=== PATIENT | male | born 1935 | race Caucasian/White ===

== ENCOUNTER 2023-03-22 02:08 | Emergency (ER) | payer MEDICARE, SELFPAY ==
[2023-03-22] VITALS (46 sets, daily range): BP systolic 134–162; BP diastolic 57–78; PULSE 73–128; RESP 11–29; TEMP 37.2; O2SAT 95–99; BMI 26.7
--- NOTE | 2023-03-22 02:38 | ED_ITS ---
HPI - General Adult General Chief complaint: Nausea/Vomiting/Diarrhea Stated complaint: RAPID HEART RATE Time Seen by Provider: 03/22/23 02:23 Source: patient Mode of arrival: walk-in Limitations: no limitations History of Present Illness HPI narrative: This 87-year-old male states that he probably has atrial fibrillation presents for evaluation of a rapid heart rate. He is on a beta joshua and lisinopril. The patient's has been sick today and he states that she was calling out for him to help her when he felt his pulse go up. He states it was racing and has since slowed down a little bit. He denied that he was nauseated but after getting to the emergency department had an episode of emesis. He denies any abdominal pain. He denies any dizziness or syncope. He is not short of breath. The patient and his were both in [place] over the holidays visiting family. The patient states that everybody at the family gathering was sick with something. 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 Related Data Allergies Allergy/AdvReac Type Severity Reaction Status Date / Time No Known Drug Allergies Allergy Verified 03/22/23 02:17 Review of Systems ROS Status of ROS 10 or more systems reviewed and unremark able except as noted in history and below Exam Narrative Exam Narrative: Nurses note and vital signs reviewed and patient is not hypoxic.His blood pressure is elevated and pulse is elevated at 128 General: The patient appears well and in no apparent distress. Patient is resting comfortably on cart. Skin: Warm, dry, no pallor noted. There is no rash noted. Head: Normocephalic, atraumatic Eye: Normal conjunctiva, no drainage, EOMI. PERRL Ears, Nose, Mouth, and Throat: oral mucosa is moist. Cardiovascular: Irregular Rate and RhythmS1 and S2, pulses are brisk and equal bilaterally Respiratory: Patient is in no distress, no accessory muscle use, lungs are riley ar to auscultation, no wheezing, rales or rhonchi Back: non-tender, no CVA tenderness bilaterally to percussion. GI: Hyperactive bowel sounds, no tenderness to palpation, no masses appreciated. No rebound, guarding, or rigidity noted. Musculoskeletal: The patient has no evidence of calf tenderness, mild swelling of the left ankle and lower leg Neurological: A&O x4, normal speech Psychiatric: Cooperative Constitutional Vital Signs, click to edit/add: Last Vital Signs Temp 98.9 F 03/22/23 02:52 Pulse 87 03/22/23 04:30 Resp 12 03/22/23 04:30 BP 155/76 H 03/22/23 04:30 Pulse Ox 98 03/22/23 04:30 Course Vital Signs Vital signs: Vital Signs Pulse Rate 128 H 03/22/23 02:12 Respiratory Rate 22 03/22/23 02:12 Blood Pressure 160/77 H 03/22/23 02:12 Pulse Oximetry 99 03/22/23 02:12 Temperature 98.9 F 03/22/23 02:52 Pulse Rate 87 03/22/23 04:30 Respiratory Rate 12 03/22/23 04:30 Blood Pressure 155/76 H 03/22/23 04:30 Pulse Oximetry 98 03/22/23 04:30 Medical Decision Making MDM Narrative Medical decision making narrative: This 87-year-old male presents for evaluation of a rapid heart rate. The patient's has been sick with a stomach bug all day and she called out to him because she needed help and wanted to come to the hospital. He states at that point he felt that his heart was racing. He thinks he has a history of atrial fibrillation but is not sure. He denied any chest pain shortness of breath dizziness or diaphoresis. On arrival he was noted to be tachycardic but then vomited and his pulse rate went down. EKG done upon arrival was a rapid atrial rhythm at 112 bpm with a left anterior hemiblock. An IV was placed and he is medicated her 324 mg aspirin, IV fluids and Zofran. His nausea resolved and he felt better after vomiting. Routine labs are reviewed. He has a normal white count and hemoglobin. He has a normal troponin. He has an elevated BUN/creatinine at 44/1.65. He tested negative for COVID 19 and influenza but tested positive for rhinorrhea/enterovirus. Chest x-ray was negative for acute findings. A repeat EKG was ordered after the IVF and is a regular rhythm at 90 bpm. He has not had any chest pain, his blood pressure has come down to 155/76 after he has relaxed and more and he is tolerating clear liquids. Lab Data Labs: Lab Results 03/22/23 03/22/2303/22/23 Range/Units 02:25 03:00 03:00 WBC 7.4 (4.0-11.0) 10^3/uL RBC 3.44 L (4.70-6.10) 10^6/uL Hgb 11.6 L (14.0-18.0) g/dL Hct 36.2 L (42.0-54.0) % MCV 105.2 H (80.0-94.0) fL MCH 33.7 (25.9-34.0) pg MCHC 32.0 (29.9-35.2) g/dL RDW 12.3 (11.0-15.0) % Plt Count 224 (150-450) 10^3/uL MPV 9.8 (9.5-13.5) fL Neut % (Auto) 77.1 H (43.0-75.0) % Lymph % (Auto) 12.4 L (20.5-60.0) % [place] % (Auto) 6.6 (1.7-12.0) % Eos % (Auto) 3.2 (0.9-7.0) % Baso % (Auto) 0.3 (0.2-2.0) % Neut # (Auto) 5.7 (1.4-6.5) 10^3/uL Lymph # (Auto) 0.9 L (1.2-3.8) 10^3/uL [place] # (Auto) 0.5 (0.3-0.8) 10^3/uL Eos # (Auto) 0.2 (0.0-0.7) 10^3/uL Baso # (Auto) 0.0 (0.0-0.1) 10^3/uL Abs Immat Gran (auto) 0.03 (0.00-0.03) 10^3/uL Imm/Tot Granulo (auto) 0.4 (0.0-0.5) % Sodium 142 (136-145) mmol/L Potassium 3.9 (3.5-5.1) mmol/L Chloride 106 (98-107) mmol/L Carbon Dioxide 22.5 (21.0-32.0) mmol/L Anion Gap 17.4 BUN 44.0 H (7.0-18.0) mg/dL Creatinine 1.65 H (0.70-1.30) mg/dL Est GFR ( Amer) 48 L (>=60) Est GFR (Non-Af Amer) 40 L (>=60) BUN/Creatinine Ratio 26.7 Glucose 129 H (74-106) mg/dL Calcium 9.3 (8.5-10.1) mg/dL Total Bilirubin 0.7 (0.2-1.0) mg/dL AST 40 H (15-37) U/L ALT 41 (16-63) U/L Alkaline Phosphatase 138 H (46-116) U/L Troponin I High Sens 9.4 (4.0-76.1) pg/mL NT-Pro-B Natriuret Pep 223.0 (<=1800.0) pg/mL Total Protein 7.5 (6.4-8.2) g/dL Albumin 3.6 (3.4-5.0) g/dL Globulin 3.9 g/dL Albumin/Globulin Ratio 0.9 Adenovirus (PCR) Not detected (NOT DETECTE) C. pneumoniae DNA (PCR) Not detected (NOT DETECTE) Coronavirus Type OC43 Not detected (NOT DETECTE) Coronavirus Type HKU1 Not detected (NOT DETECTE) Coronavirus Type 229E Not detected (NOT DETECTE) SARS-CoV-2 (PCR) Negative Not detected (NEGATIVE) Coronavirus Type NL63 Not detected (NOT DETECTE) Human Metapneumovir PCR Not detected (NOT DETECTE) Influenza Type A Ag Negative Influenza Type B Ag Negative M. pneumoniae (PCR) Not detected (NOT DETECTE) Parainfluenza PCR Not detected (NOT DETECTE) Parainfluenza 2 (PCR) Not detected (NOT DETECTE) Parainfluenza 3 (PCR) Not detected (NOT DETECTE) Parainfluenza 4 (PCR) Not detected (NOT DETECTE) RSV (RT-PCR) Not detected (NOT DETECTE) Entero/Rhino (PCR) Detected A (NOT DETECTE) Bordetella pertussis (PCR) Not detected (NOT DETECTE) B parapertussis DNA PCR Not detected (NOT DETECTE) Influenza Type A (PCR) Not detected (NOT DETECTE) Influenza Type B (PCR) Not detected (NOT DETECTE) ECG Data Attestation: I personally reviewed and interpreted this ECG as follows: (Atrial fibrillation with rapid ventricular response at 112 bpm, left anterior hemiblock, left axis deviation, no acute ST segment elevation or T-wave inversion. Repeat EKG rapid atrial rhythm at 90 bpm. The rhythm is regular. First-degree AV block with left axis deviation, no acute ST segment elevat) Discharge Plan Discharge Chief Complaint: Nausea/Vomiting/Diarrhea Clinical Impression: Enterovirus infection, Rhinovirus infection, Gastroenteritis Patient Disposition: Home, Self-Care Time of Disposition Decision: 04:47 Condition: Good Instructions: Gastroenteritis (ED), Acute Nausea and Vomiting (ED) Stand Alone Forms: Portal Instructions Referrals: KATHY WEAVER [Primary Care Provider] - 1 week
[2023-03-22] MEDS: FAMOTIDINE/PF 20 MG/2 ML VIAL IV (02:50)
[2023-03-22] MEDS: ONDANSETRON PF 4 MG/2 ML VIAL IV ×2 (02:50→06:10)
[2023-03-22] MEDS: 0.9 % SODIUM CHLORIDE 1,000 ML 1000 ML IV (02:50)
[2023-03-22] MEDS: ASPIRIN 81 MG TAB.CHEW 324 MG PO (02:54)
[2023-03-22 03:19] LABS: Basophils Percent Auto 0.3 % (0.2-2.0); Eosinophils Absolute Auto 0.2 10^3/uL (0.0-0.7); Eosinophils Percent Auto 3.2 % (0.9-7.0); Hematocrit 36.2 % (42.0-54.0); Hemoglobin 11.6 g/dL (14.0-18.0); Immature Granulocytes Abs Auto 0.03 10^3/uL (0.00-0.03); Immature Granulocytes Pct Auto 0.4 % (0.0-0.5); Lymphocytes Absolute Auto 0.9 10^3/uL (1.2-3.8); Lymphocytes Percent Auto 12.4 % (20.5-60.0); Mean Corpuscular Hemoglobin 33.7 pg (25.9-34.0); Mean Corpuscular Volume 105.2 fL (80.0-94.0); Mean Platelet Volume 9.8 fL (9.5-13.5); Monocytes Absolute Auto 0.5 10^3/uL (0.3-0.8); Monocytes Percent Auto 6.6 % (1.7-12.0); Neutrophils Absolute Auto 5.7 10^3/uL (1.4-6.5); Neutrophils Percent Auto 77.1 % (43.0-75.0); Platelet Count 224 10^3/uL (150-450); Red Blood Count 3.44 10^6/uL (4.70-6.10); Red Cell Distribution Width 12.3 % (11.0-15.0); White Blood Count 7.4 10^3/uL (4.0-11.0)
[2023-03-22 03:26] LABS: Influenza Virus A Antigen Negative; Influenza Virus B Antigen Negative; Internal Control Within Normal Limits; SARS-CoV-2 Ag NEGATIVE (NEGATIVE)
[2023-03-22 03:39] LABS: Alanine Aminotransferase 41 U/L (16-63); Albumin Globulin Ratio 0.9; Albumin Level 3.6 g/dL (3.4-5.0); Alkaline Phosphatase 138 U/L (46-116); Anion Gap 17.4; Aspartate Amino Transferase 40 U/L (15-37); BUN Creatinine Ratio 26.7; Bilirubin Total 0.7 mg/dL (0.2-1.0); Calcium 9.3 mg/dL (8.5-10.1); Carbon Dioxide 22.5 mmol/L (21.0-32.0); Chloride 106 mmol/L (98-107); Estimated GFR (African America 48 (>=60); Estimated GFR (Non-African Ame 40 (>=60); Globulin 3.9 g/dL; Glucose 129 mg/dL (74-106); Potassium 3.9 mmol/L (3.5-5.1); Sodium 142 mmol/L (136-145); Total Protein 7.5 g/dL (6.4-8.2); Troponin I High Sensitivity 9.4 pg/mL (4.0-76.1)
[2023-03-22 03:51] LABS: Adenovirus NOT DETECTED (NOT DETECTE); Bordetella parapertussis NOT DETECTED (NOT DETECTE); Coronavirus 229E NOT DETECTED (NOT DETECTE); Coronavirus HKU1 NOT DETECTED (NOT DETECTE); Coronavirus NL63 NOT DETECTED (NOT DETECTE); Coronavirus OC43 NOT DETECTED (NOT DETECTE); Human Metapneumovirus NOT DETECTED (NOT DETECTE); Influenza A NOT DETECTED (NOT DETECTE); Influenza B NOT DETECTED (NOT DETECTE); Mycoplasma pneumoniae NOT DETECTED (NOT DETECTE); Parainfluenza Virus 1 NOT DETECTED (NOT DETECTE); Parainfluenza Virus 2 NOT DETECTED (NOT DETECTE); Parainfluenza Virus 3 NOT DETECTED (NOT DETECTE); Parainfluenza Virus 4 NOT DETECTED (NOT DETECTE); Respiratory Syncytial Virus NOT DETECTED (NOT DETECTE); SARS-CoV-2 NOT DETECTED (NOT DETECTE)
--- NOTE | 2023-03-22 04:02 | XR_ITS ---
The [address] [address] Patient Name: JAEL VORA MRN: [id number] date: 1935 Sex: M Assigned Patient Location: ER Current Patient Location: ED.MAIN Accession/Order Number: [id number] Exam Date: 03/22/2023 04:10 Report Date: 03/22/2023 05:28 At the request of: SHAINA MARKER Procedure: XR chest 1V EXAM: XR chest 1V HISTORY: Chest pain; technologist notes state rapid heart rate, vomiting and history of hypertension COMPARISON: Chest radiograph dated 04/06/2014. TECHNIQUE: AP erect portable chest radiograph performed. FINDINGS: The trachea is unremarkable. The cardiac silhouette is upper limits normal size to slightly prominent however stable. Stable mild atheromatous calcification at the aortic arch. There may be a small hiatal hernia however this is not definite. The hilar shadows are normal. There is no consolidation, infiltrate, pleural effusion or pulmonary vascular congestion. There is no pneumothorax. The bony structures are osteopenic. XR/XR chest 1V IMPRESSION: There is no acute cardiopulmonary process. Electronically authenticated by: MANJINDER SOLANO Date: 03/22/2023 05:28
--- NOTE | 2023-03-22 04:03 | ECG_ITS ---
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
--- NOTE | 2023-03-22 04:03 | ECG_ITS ---
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
[2023-03-22] MEDS: ACETAMINOPHEN 325 MG TABLET 650 MG PO (04:23)
[2023-03-22 04:41] LABS: Human Rhinovirus/Enterovirus DETECTED (NOT DETECTE)
[2023-03-22 14:28] LABS: SARS-CoV-2 NAA NOT DETECTED (NOT DETECTE)
== END 2023-03-22 05:00 | disposition home or self-care (01) ==
PROVIDERS: Emergency Provider Emergency Medicine; PCP Internal Medicine
DX: K52.9 Noninfective gastroenteritis and colitis, unspecified (principal); B34.1 Enterovirus infection, unspecified; B34.8 Other viral infections of unspecified site; R00.0 Tachycardia, unspecified; I10 Essential (primary) hypertension
CPT/HCPCS: 0202U; 36415; 71045; 80053; 83880; 84484; 85025; 87635; 87804; 87811; 93005; 96361; 96374; 96375; 99285